=== PATIENT | male | born 1955 | race Caucasian/White ===

== ENCOUNTER 2017-11-07 12:02 | Outpatient (CLI) | payer OTHER ==
--- NOTE | 2017-11-09 08:28 | Diagnostic Imaging Report ---
Indication: Abdominal pain, hepatitis C Technique: Babin-scale and duplex images of the upper abdomen were obtained Comparison: 11/16/2016 Findings: Gallbladder is unremarkable, without stones, wall thickening, nor pericholecystic fluid. Sonographic Miller's sign is negative. Common bile duct measures 3 mm in diameter. No intrahepatic biliary ductal dilatation. Liver demonstrates slightly coarsened echotexture, no focal abnormality. Portal vein and hepatic veins are patent. Pancreas is unremarkable. Spleen is unremarkable. Left kidney measures 10.7 cm in length. Right kidney measures 1.1 cm length. Both kidneys demonstrate normal echogenicity. There is no hydronephrosis. Left kidney demonstrates a lower pole cyst. The right kidney demonstrates a calcification in the renal sinus, not reported on the most recent exam but was reported on an earlier study of 11/10/2015. Left kidney demonstrates a cyst Non-aneurysmal abdominal aorta . Impression: Negative for gallstones or dilated ducts Slightly coarse in hepatic echogenicity, consistent with known history of hepatocellular disease Probable nonobstructive right renal calculus Incidental finding left renal cyst
== END 2017-11-07 14:02 | disposition home or self-care (01) ==
LOC: ULS 12:02
DX: B19.20 Unspecified viral hepatitis C without hepatic coma (principal)
CPT/HCPCS: 76700

== ENCOUNTER 2018-11-22 11:30 | Outpatient (CLI) | payer OTHER ==
--- NOTE | 2018-11-22 14:18 | Diagnostic Imaging Report ---
Indication:Abdominal pain Technique: Grayscale and duplex Doppler imaging of the abdomen performed. Comparison: 11/07/2017 Findings: The liver is unremarkable. The gallbladder is notable for mild wall thickening and a tiny polyp.. The demonstrated part of the pancreas, aorta and IVC show no abnormalities. There is a small cyst demonstrated within the left kidney. Within the right kidney there is a suspected nonobstructive stone. The spleen is normal in size. There is no biliary ductal dilatation identified. Doppler evaluation of the main portal vein shows patency. There is no ascites. No hydronephrosis seen. Impression: No acute findings. No significant change. Suspected nonobstructive stone in the right kidney Probable gallbladder polyp Left renal cyst
== END 2018-11-22 13:30 | disposition home or self-care (01) ==
LOC: ULS 11:30
DX: B19.20 Unspecified viral hepatitis C without hepatic coma (principal)
CPT/HCPCS: 76700